=== PATIENT | female | born 1995 ===

== ENCOUNTER 2018-12-23 14:56 | Inpatient (IN) | payer SELFPAY ==
[2018-12-23] MEDS ORDERED: Sodium Chloride 0.9% 2.5 ML Syringe FLUSH PRN (18:29)
[2018-12-23] MEDS ORDERED: Carboprost Tromethamine 250 MCG/1 ML Amp IM PRN (18:29)
[2018-12-23] MEDS ORDERED: Ondansetron 4 MG/2 ML SDV IV PRN (18:29)
[2018-12-23] MEDS ORDERED: Butorphanol 1 MG/ML SDV IVPUSH PRN (18:29)
[2018-12-23] MEDS ORDERED: Lidocaine 1% 50 ML MDV INJECT PRN (18:29)
[2018-12-23] MEDS ORDERED: Nalbuphine 10 MG/1 ML Vial IVPUSH PRN (18:29)
[2018-12-23] MEDS ORDERED: Tranexamic Acid 1,000 MG in Sodium Chloride 0.9% 100 ML IV PRN (18:29)
[2018-12-23] MEDS ORDERED: Water For Irrigation,Sterile 1,000 ML Container IRR PRN (18:29)
[2018-12-23] MEDS ORDERED: Sodium Chloride 0.9% 10 ML Syringe FLUSH PRN (18:29)
[2018-12-23] MEDS ORDERED: Misoprostol 200 MCG Tab PO PRN (18:29)
[2018-12-23] MEDS ORDERED: Sodium Chloride 0.9% 10 ML SDV IV PRN (18:29)
[2018-12-23] MEDS ORDERED: Methylergonovine 0.2 MG/1 ML Amp IM PRN (18:29)
[2018-12-23] MEDS ORDERED: Oxytocin/0.9 % Sodium Chloride 30 UNIT/500 ML BAG IV SCH (18:30)
[2018-12-23] MEDS ORDERED: Lactated Ringers 1,000 ML IV SCH (18:30)
--- NOTE | 2018-12-23 18:35 | PCM.LDHP ---
L&D History of Present Illness - General Date of Service: 12/23/18 Admit Problem/Dx: Patient Status Order with Admit Dx/Problem 12/23/18 15:37 Patient Status [ADT] Routine 12/23/18 18:29 Patient Status [ADT] Routine Admission Diagnosis/Problem Admission Diagnosis/Problem Source of Information: Patient History Limitations: Reports: No Limitations - History of Present Illness Improves with: Reports: None Worsens with: Reports: None Associated Symptoms: Reports: N - Related Data Allergies/Adverse Reactions: Allergies Allergy/AdvReac Type Severity Reaction Status Date / Time No Known Allergies Allergy Verified 12/23/18 15:36 Home Medications: Home Meds Pnv22/Iron Cbn&Gluc/Fa/Dss/Dha [PNV OB + DHA] 1 tab PO DAILY 12/23/18 [History] H&P Review of Systems - Review of Systems: Review Of Systems: See Below General: Reports: No Symptoms HEENT: Reports: No Symptoms Pulmonary: Reports: No Symptoms Cardiovascular: Reports: No Symptoms Gastrointestinal: Reports: No Symptoms Genitourinary: Reports: No Symptoms Musculoskeletal: Reports: No Symptoms Skin: Reports: No Symptoms Psychiatric: Reports: No Symptoms Neurological: Reports: No Symptoms Hematologic/Lymphatic: Reports: No Symptoms Immunologic: Reports: No Symptoms L&D Exam - Exam Exam: See Below - Vital Signs Weight: 97.976 kg - OB Specific Fundal Height In cm: 36 Contraction Intensity: Moderate Movement: Active Heart Tones: Present Presentation: Vertex - Garcia Score Garcia Score Cervix Position: Anterior Garcia Score Consistency: Soft Garcia Score Effacement: 51-70% Garcia Score Dilation: 3-4 cm Garcia Score Infant's Station: -2 Garcia Score Total: 9 - Exam General: Alert, Oriented HEENT: PERRLA, Conjunctiva Clear, EACs Clear, EOMI, Hearing Intact, Mucosa Moist & [place], Nares Patent, Normal Nasal Septum, Posterior Pharynx Clear, TMs Clear Neck: Supple, Trachea Midline Lungs: Clear to Auscultation, Normal Respiratory Effort Cardiovascular: Regular Rate, Regular Rhythm GI/Abdominal Exam: Normal Bowel Sounds, Soft, Non-Tender, No Organomegaly, No Distention, No Abnormal Bruit, No Mass, Pelvis Stable Rectal Exam: Normal Exam, Normal Rectal Tone Genitourinary: Normal external exam, Normal bimanual exam, Normal speculum exam Back Exam: Normal Inspection, Full Range of Motion Extremities: Normal Inspection, Normal Range of Motion, Non-Tender, No Pedal Edema, Normal Capillary Refill Skin: Warm, Dry, Intact Neurological: Cranial Nerves Intact, Reflexes Equal Bilateral Psychiatric: Alert, Normal Affect, Normal Mood - Patient Data Lab Results Last 24 hrs: Laboratory Results - last 24 hr 12/23/18 12/23/18 Range/Units 13:15 15:21 Urine Color YELLOW Urine Appearance CLEAR Urine pH 7.0 (5.0-8.0) Ur Specific [place] <= 1.005 (1.001-1.035) Urine Protein NEGATIVE (NEGATIVE) mg/dL Urine Glucose (UA) NEGATIVE (NEGATIVE) mg/dL Urine Ketones NEGATIVE (NEGATIVE) mg/dL Urine Occult Blood NEGATIVE (NEGATIVE) Urine Nitrite NEGATIVE (NEGATIVE) Urine Bilirubin NEGATIVE (NEGATIVE) Urine Urobilinogen 0.2 (<2.0) EU/dL Ur Leukocyte Esterase NEGATIVE (NEGATIVE) Membrane Rupture NEGATIVE Problem List Initiated/Reviewed/Updated: Yes Orders Last 24hrs: Active Orders 24 hr Category Date Time Status Patient Status [ADT] Routine ADT 12/23/18 15:37 Active Patient Status [ADT] Routine ADT 12/23/18 18:29 Active Heart Tones [RC] CONTINUOUS Care 12/23/18 18:29 Active Non Stress Test [RC] PER UNIT ROUTINE Care 12/23/18 15:37 Active Non Stress Test [RC] PER UNIT ROUTINE Care 12/23/18 18:29 Active May Shower [RC] ASDIRECTED Care 12/23/18 18:29 Active Notify Provider [RC] PRN Care 12/23/18 18:29 Active Up ad Violette [RC] ASDIRECTED Care 12/23/18 15:37 Active Up ad Violette [RC] ASDIRECTED Care 12/23/18 18:29 Active Vaginal Exam [RC] Click to Edit Care 12/23/18 15:37 Active Vaginal Exam [RC] PRN Care 12/23/18 18:29 Active Vital Signs [RC] PER UNIT ROUTINE Care 12/23/18 15:37 Active Vital Signs [RC] PER UNIT ROUTINE Care 12/23/18 18:29 Active CBC W/O DIFF,HEMOGRAM [HEME] Routine Lab 12/23/18 18:29 Ordered TYPE AND SCREEN [BBK] Routine Lab 12/23/18 18:29 Ordered Ampicillin 1 gm Med 12/23/18 23:00 Ordered Sodium Chloride 0.9% [Normal Saline] 50 ml IV Q4H Ampicillin 2 gm Med 12/23/18 19:00 Ordered Sodium Chloride 0.9% [Normal Saline] 100 ml IV ONETIME Butorphanol [Stadol] Med 12/23/18 18:29 Ordered 1 mg IVPUSH Q1H PRN Carboprost Tromethamine [Hemabate DS] Med 12/23/18 18:29 Ordered 250 mcg IM ASDIRECTED PRN Lactated Ringers @ 150 MLS/HR(1000ml) Med 12/23/18 18:30 Ordered Lactated Ringers [Ringers, Lactated] 1,000 ml IV ASDIRECTED Lidocaine 1% [Xylocaine 1%] Med 12/23/18 18:29 Ordered 50 ml INJECT ONETIME PRN Methylergonovine [Methergine] Med 12/23/18 18:29 Ordered 0.2 mg IM ASDIRECTED PRN Nalbuphine [Nubain] Med 12/23/18 18:29 Ordered 10 mg IVPUSH Q1H PRN Ondansetron [Zofran] Med 12/23/18 18:29 Ordered 4 mg IV Q4H PRN Oxytocin/0.9 % Sodium Chloride [Oxytocin 30 Unit/500 ML Med 12/23/18 18:30 Ordered -NS] 30 unit in 500 ml IV TITRATE Sodium Chloride 0.9% [Normal Saline] Med 12/23/18 18:29 Ordered 10 ml IV ASDIRECTED PRN Sodium Chloride 0.9% [Saline Flush] Med 12/23/18 18:29 Ordered 10 ml FLUSH ASDIRECTED PRN Sodium Chloride 0.9% [Saline Flush] Med 12/23/18 18:29 Ordered 2.5 ml FLUSH ASDIRECTED PRN Tranexamic Acid [Cyklokapron] 1,000 mg Med 12/23/18 18:29 Ordered Sodium Chloride 0.9% [Normal Saline] 100 ml IV ONETIME Water For Irrigation,Sterile [Sterile Water for Med 12/23/18 18:29 Ordered Irrigation] 1,000 ml IRR ASDIRECTED PRN miSOPROStol [Cytotec] Med 12/23/18 18:29 Ordered 200 mcg PO ONETIME PRN Scalp Electrode [WOMSER] Per Unit Routine Oth 12/23/18 18:29 Ordered Peripheral IV Insertion Adult [OM.PC] Routine Oth 12/23/18 18:29 Ordered Resuscitation Status Routine Resus Stat 12/23/18 18:29 Ordered Assessment/Plan Comment:: 36 + wks in early active labor. GBS is pendding so we will start her on antibiotics as per protocol. Expectant management.
[2018-12-23] MEDS ORDERED: Ampicillin 2 GM in Sodium Chloride 0.9% 100 ML IV ONE (19:00)
[2018-12-23] MEDS: Ampicillin 1 GM in Sodium Chloride 0.9% 50 ML IV SCH (23:06)
[2018-12-24] MEDS: Ampicillin 1 GM in Sodium Chloride 0.9% 50 ML IV SCH ×2 (04:16→07:45)
[2018-12-24] MEDS ORDERED: Docusate Sodium 100 MG Cap PO PRN (11:33)
[2018-12-24] MEDS ORDERED: Benzocaine/Menthol 20%-0.5% Spray 78 GM Cannister TOP PRN (11:33)
[2018-12-24] MEDS ORDERED: Bisacodyl 10 MG Supp RECTAL PRN (11:33)
[2018-12-24] MEDS ORDERED: Lanolin 100% Cream 7 GM Tube TOP PRN (11:33)
[2018-12-24] MEDS ORDERED: Ibuprofen 400 MG Tab PO PRN (11:33)
[2018-12-24] MEDS ORDERED: Acetaminophen 500 MG Tab PO PRN ×2 (11:33)
[2018-12-24] MEDS ORDERED: oxyCODONE 5 MG Tab PO PRN (11:33)
[2018-12-24] MEDS ORDERED: Witch Hazel Medicated Pads 40/Jar TOP PRN (11:33)
[2018-12-24] MEDS ORDERED: Ibuprofen 800 MG Tab PO PRN (11:33)
--- NOTE | 2018-12-24 17:57 | OR ---
SURGEON: Dmitri Mansfield MD DATE OF PROCEDURE: Ms. Lloyd is 23 years old. She is para 1-0-0-1. She is followed in our clinic. She is primarily followed by me. She is 36 +4 . She presented last night to Labor and Delivery with contraction, she slowly developed contraction, and she progressed from 1 to 5 cm rather in a couple of hours. Then, her labor slowed down and then restarted again, and then she continued to progress. She did not have epidural. She became complete-complete, and she was able to accomplish normal spontaneous vaginal delivery of a male fetus, cried immediately, and required some oxygen resuscitation. The placenta delivered spontaneous, complete, and intact. There was no episiotomy. No laceration in labial or perineal. Estimated blood loss was 250 to 300 mL. heart rate was category 1 through the entire process of labor. The patient's GBS status was pending. She was started on appropriate antibiotic, and she received 4 doses prior to the delivery. There was no complication in the labor process or in the delivery. [place] / ALBAN /[id number]
--- NOTE | 2018-12-25 10:14 | PCM.PNPP ---
- General Info Date of Service: 12/25/18 Functional Status: Reports: Pain Controlled - Review of Systems General: Reports: No Symptoms HEENT: Reports: No Symptoms Pulmonary: Reports: No Symptoms Cardiovascular: Reports: No Symptoms Gastrointestinal: Reports: No Symptoms Genitourinary: Reports: No Symptoms Musculoskeletal: Reports: No Symptoms Skin: Reports: No Symptoms Neurological: Reports: No Symptoms Psychiatric: Reports: No Symptoms - General Info Date of Service: 12/25/18 - Patient Data Vital Signs - Most Recent: Last Vital Signs Temp 36.3 C 12/25/18 07:05 Pulse 72 12/25/18 07:05 Resp 16 12/25/18 07:05 BP 101/51 L 12/25/18 07:05 Pulse Ox 96 12/25/18 07:05 Weight - Most Recent: 98.43 kg Lab Results - Last 24 Hours: Laboratory Results - last 24 hr 12/25/18 Range/Units 04:58 Hgb 11.8 L (12.0-16.0) g/dL Hct 36.3 (36.0-46.0) % Med Orders - Current: Current Medications Acetaminophen (Tylenol Extra Strength) 500 mg PO Q4H PRN PRN Reason: Pain Acetaminophen (Tylenol Extra Strength) 1,000 mg PO Q4H PRN PRN Reason: Pain Benzocaine/Menthol (Dermoplast Pain Relief 20%-0.5% Gabriels) 78 gm TOP ASDIRECTED PRN PRN Reason: Perineal Comfort Measure Bisacodyl (Dulcolax) 10 mg RECTAL ONETIME PRN PRN Reason: Constipation Butorphanol Tartrate (Stadol) 1 mg IVPUSH Q1H PRN PRN Reason: Pain Carboprost Tromethamine (Hemabate Ds) 250 mcg IM ASDIRECTED PRN PRN Reason: Post Hemorrhage Docusate Sodium (Colace) 100 mg PO BID PRN PRN Reason: Constipation Emollient Ointment (Lansinoh Hpa) 0 gm TOP ASDIRECTED PRN PRN Reason: Sore Nipples Tranexamic Acid 1,000 mg/ (Sodium Chloride) 110 mls @ 660 mls/hr IV ONETIME PRN PRN Reason: Bleeding Lactated Ringer's (Ringers, Lactated) 1,000 mls @ 150 mls/hr IV ASDIRECTED MARIIA Last Admin: 12/23/18 19:00 Dose: 150 mls/hr Oxytocin/Sodium Chloride (Oxytocin 30 Unit/500 Ml-Ns) 30 unit in 500 mls @ 500 mls/hr IV TITRATE MARIIA Ampicillin Sodium 1 gm/ Sodium (Chloride) 50 mls @ 100 mls/hr IV Q4H MARIIA Last Admin: 12/24/18 07:45 Dose: 100 mls/hr Ibuprofen (Motrin) 400 mg PO Q4H PRN PRN Reason: Pain Ibuprofen (Motrin) 800 mg PO Q6H PRN PRN Reason: Pain Last Admin: 12/24/18 18:55 Dose: 800 mg Lidocaine HCl (Xylocaine 1%) 50 ml INJECT ONETIME PRN PRN Reason: Laceration repair Methylergonovine Maleate (Methergine) 0.2 mg IM ASDIRECTED PRN PRN Reason: Post Hemorrhage Misoprostol (Cytotec) 200 mcg PO ONETIME PRN PRN Reason: Post Hemorrhage Nalbuphine HCl (Nubain) 10 mg IVPUSH Q1H PRN PRN Reason: Pain (severe 7-10) Ondansetron HCl (Zofran) 4 mg IV Q4H PRN PRN Reason: Nausea/Vomiting Oxycodone HCl (Oxycodone) 5 mg PO Q2H PRN PRN Reason: Pain Sodium Chloride (Saline Flush) 10 ml FLUSH ASDIRECTED PRN PRN Reason: Keep Vein Open Sodium Chloride (Saline Flush) 2.5 ml FLUSH ASDIRECTED PRN PRN Reason: Keep Vein Open Sodium Chloride (Normal Saline) 10 ml IV ASDIRECTED PRN PRN Reason: IV Use Sterile Water (Sterile Water For Irrigation) 1,000 ml IRR ASDIRECTED PRN PRN Reason: delivery Witch Tanesha (Tucks) 1 pad TOP ASDIRECTED PRN PRN Reason: comfort care Discontinued Medications Ampicillin Sodium 2 gm/ Sodium (Chloride) 100 mls @ 200 mls/hr IV ONETIME ONE Stop: 12/23/18 19:29 Last Admin: 12/23/18 19:00 Dose: 200 mls/hr - Infant Interaction Disposition, : in Room with Family Infant Interaction: Holding Infant Support Person: - Recovery Exam Fundal Tone: Firm Fundal Level: 2 Fingerbreadths Below Umbilicus Fundal Placement: Midline Lochia Amount: Scant Lochia Color: Rubra/Red Perineum Description: Intact, Minimal Bruising/Swelling Episiotomy/Laceration: None Bladder Status: Voiding Urinary Elimination: Voided - Exam General: Alert, Oriented HEENT: Pupils Equal Neck: Supple Lungs: Clear to Auscultation, Normal Respiratory Effort Cardiovascular: Regular Rate, Regular Rhythm GI/Abdominal Exam: Normal Bowel Sounds, Soft, Non-Tender, No Organomegaly, No Distention, No Abnormal Bruit, No Mass, Pelvis Stable Extremities: Normal Inspection, Normal Range of Motion, Non-Tender, No Pedal Edema, Normal Capillary Refill Skin: Warm, Dry, Intact Wound/Incisions: Healing Well Neurological: No New Focal Deficit Psy/Mental Status: Alert, Normal Affect, Normal Mood - Problem List Review Problem List Initiated/Reviewed/Updated: Yes - My Orders Last 24 Hours: My Active Orders 12/24/18 11:33 Patient Status [ADT] Routine May Shower [RC] ASDIRECTED Up ad Violette [RC] ASDIRECTED Vital Signs [RC] PER UNIT ROUTINE Acetaminophen [Tylenol Extra Strength] 1,000 mg PO Q4H PRN Acetaminophen [Tylenol Extra Strength] 500 mg PO Q4H PRN Benzocaine/Menthol [Dermoplast Pain Relief 20%-0.5% Gabriels] 78 gm TOP ASDIRECTED PRN Bisacodyl [Dulcolax] 10 mg RECTAL ONETIME PRN Docusate Sodium [Colace] 100 mg PO BID PRN Ibuprofen [Motrin] 400 mg PO Q4H PRN Ibuprofen [Motrin] 800 mg PO Q6H PRN Lanolin [Lansinoh HPA] See Dose Instructions TOP ASDIRECTED PRN Witch Tanesha [Tucks] 1 pad TOP ASDIRECTED PRN oxyCODONE 5 mg PO Q2H PRN Assess Lochia [WOMSER] Per Unit Routine Assess Uterine Involution [WOMSER] Per Unit Routine Peripheral IV Discontinue [OM.PC] Routine - Plan Plan:: 36 + wks in early active labor. GBS is pendding so we will start her on antibiotics as per protocol. Expectant management.
--- NOTE | 2018-12-25 10:18 | PCM.DCSUM1 ---
Discharge Summary - Hospital Course Diagnosis: Stroke: No - Discharge Data Discharge Date: 12/25/18 Discharge Disposition: Home, Self-Care 01 Condition: Good - Patient Instructions Diet: Usual Diet as Tolerated Activity: As Tolerated Showering/Bathing: No Showering - Discharge Plan Home Medications: Home Meds Pnv22/Iron Cbn&Gluc/Fa/Dss/Dha [PNV OB + DHA] 1 tab PO DAILY 12/23/18 [History] Referrals: [facility] [Outside] Dmitri Mansfield MD [Physician] - 02/04/19 10:45 am - Discharge Summary/Plan Comment DC Time >30 min.: Yes - General Info Date of Service: 12/25/18 Functional Status: Reports: Pain Controlled - Review of Systems General: Reports: No Symptoms HEENT: Reports: No Symptoms Pulmonary: Reports: No Symptoms Cardiovascular: Reports: No Symptoms Gastrointestinal: Reports: No Symptoms Genitourinary: Reports: No Symptoms Musculoskeletal: Reports: No Symptoms Skin: Reports: No Symptoms Neurological: Reports: No Symptoms Psychiatric: Reports: No Symptoms - Patient Data Vitals - Most Recent: Last Vital Signs Temp 36.3 C 12/25/18 07:05 Pulse 72 12/25/18 07:05 Resp 16 12/25/18 07:05 BP 101/51 L 12/25/18 07:05 Pulse Ox 96 12/25/18 07:05 Weight - Most Recent: 98.43 kg Lab Results - Last 24 hrs: Laboratory Results - last 24 hr 12/25/18 Range/Units 04:58 Hgb 11.8 L (12.0-16.0) g/dL Hct 36.3 (36.0-46.0) % Med Orders - Current: Current Medications Acetaminophen (Tylenol Extra Strength) 500 mg PO Q4H PRN PRN Reason: Pain Acetaminophen (Tylenol Extra Strength) 1,000 mg PO Q4H PRN PRN Reason: Pain Benzocaine/Menthol (Dermoplast Pain Relief 20%-0.5% [place]) 78 gm TOP ASDIRECTED PRN PRN Reason: Perineal Comfort Measure Bisacodyl (Dulcolax) 10 mg RECTAL ONETIME PRN PRN Reason: Constipation Butorphanol Tartrate (Stadol) 1 mg IVPUSH Q1H PRN PRN Reason: Pain Carboprost Tromethamine (Hemabate Ds) 250 mcg IM ASDIRECTED PRN PRN Reason: Post Hemorrhage Docusate Sodium (Colace) 100 mg PO BID PRN PRN Reason: Constipation Emollient Ointment (Lansinoh Hpa) 0 gm TOP ASDIRECTED PRN PRN Reason: Sore Nipples Tranexamic Acid 1,000 mg/ (Sodium Chloride) 110 mls @ 660 mls/hr IV ONETIME PRN PRN Reason: Bleeding Lactated Ringer's (Ringers, Lactated) 1,000 mls @ 150 mls/hr IV ASDIRECTED MARIIA Last Admin: 12/23/18 19:00 Dose: 150 mls/hr Oxytocin/Sodium Chloride (Oxytocin 30 Unit/500 Ml-Ns) 30 unit in 500 mls @ 500 mls/hr IV TITRATE [facility] Ampicillin Sodium 1 gm/ Sodium (Chloride) 50 mls @ 100 mls/hr IV Q4H [facility] Last Admin: 12/24/18 07:45 Dose: 100 mls/hr Ibuprofen (Motrin) 400 mg PO Q4H PRN PRN Reason: Pain Ibuprofen (Motrin) 800 mg PO Q6H PRN PRN Reason: Pain Last Admin: 12/24/18 18:55 Dose: 800 mg Lidocaine HCl (Xylocaine 1%) 50 ml INJECT ONETIME PRN PRN Reason: Laceration repair Methylergonovine Maleate (Methergine) 0.2 mg IM ASDIRECTED PRN PRN Reason: Post Hemorrhage Misoprostol (Cytotec) 200 mcg PO ONETIME PRN PRN Reason: Post Hemorrhage Nalbuphine HCl (Nubain) 10 mg IVPUSH Q1H PRN PRN Reason: Pain (severe 7-10) Ondansetron HCl (Zofran) 4 mg IV Q4H PRN PRN Reason: Nausea/Vomiting Oxycodone HCl (Oxycodone) 5 mg PO Q2H PRN PRN Reason: Pain Sodium Chloride (Saline Flush) 10 ml FLUSH ASDIRECTED PRN PRN Reason: Keep Vein Open Sodium Chloride (Saline Flush) 2.5 ml FLUSH ASDIRECTED PRN PRN Reason: Keep Vein Open Sodium Chloride (Normal Saline) 10 ml IV ASDIRECTED PRN PRN Reason: IV Use Sterile Water (Sterile Water For Irrigation) 1,000 ml IRR ASDIRECTED PRN PRN Reason: delivery Neisha Almendarez (Tucks) 1 pad TOP ASDIRECTED PRN PRN Reason: comfort care Discontinued Medications Ampicillin Sodium 2 gm/ Sodium (Chloride) 100 mls @ 200 mls/hr IV ONETIME ONE Stop: 12/23/18 19:29 Last Admin: 12/23/18 19:00 Dose: 200 mls/hr - Exam General: Reports: Alert, Oriented HEENT: Reports: Pupils Equal, Pupils Reactive, EOMI, Mucous Membr. Moist/[place] Neck: Reports: Supple Lungs: Reports: Clear to Auscultation, Normal Respiratory Effort Cardiovascular: Reports: Regular Rate, Regular Rhythm GI/Abdominal Exam: Normal Bowel Sounds, Soft, Non-Tender, No Organomegaly, No Distention, No Abnormal Bruit, No Mass, Pelvis Stable (Female) Exam: Normal External Exam, Normal Speculum Exam, Normal Bimanual Exam Rectal (Female) Exam: Normal Exam, Normal Rectal Tone Back Exam: Reports: Normal Inspection, Full Range of Motion Extremities: Normal Inspection, Normal Range of Motion, Non-Tender, No Pedal Edema, Normal Capillary Refill Skin: Reports: Warm, Dry, Intact Wound/Incisions: Reports: Healing Well Neurological: Reports: No New Focal Deficit Psy/Mental Status: Reports: Alert, Normal Affect, Normal Mood
[2018-12-25] MEDS ORDERED: hydrOXYzine Pamoate 25 MG Cap PO ONE (16:25)
== END 2018-12-25 15:45 | disposition home or self-care (01) | DRG 807 ==
LOC: MW.OBCHECK 14:56 → MW.OB 14:57 → MW.OBCHECK 18:29 → MW.OB 18:29 → OBSVTOIN 12-24 11:02 → MW.OB 12-24 19:30
PROVIDERS: ADMIT Obstetrics & Gynecology; ATTEND Obstetrics & Gynecology
PROC: 10E0XZZ Delivery of Products of Conception, External Approach (ICD-10-PCS; principal; 2018-12-25)
DX: O60.14X0 Preterm labor third trimester with preterm delivery third trimester, not applicable or unspecified (principal); Z37.0 Single live birth; Z3A.36 36 weeks gestation of pregnancy
CPT/HCPCS: 36415; 59025; 59409; 81003; 84112; 85014; 85018; 85027; 86850; 86900; 86901; A9270-GY; J0290; J7030; J7050; J7120

== ENCOUNTER 2021-01-26 21:31 | Inpatient (IN) | payer BC ==
[2021-01-26] MEDS ORDERED: Nalbuphine 10 MG/1 ML Vial IVPUSH PRN (22:15)
[2021-01-26] MEDS ORDERED: Sodium Chloride 0.9% 2.5 ML Syringe FLUSH PRN (22:15)
[2021-01-26] MEDS ORDERED: Sodium Chloride 0.9% 10 ML SDV IV PRN (22:15)
[2021-01-26] MEDS ORDERED: Misoprostol 200 MCG Tab PO PRN (22:15)
[2021-01-26] MEDS ORDERED: Tranexamic Acid 1,000 MG in Sodium Chloride 0.9% 100 ML IV PRN (22:15)
[2021-01-26] MEDS ORDERED: Oxytocin/0.9 % Sodium Chloride 30 UNIT/500 ML BAG IV SCH (22:15)
[2021-01-26] MEDS ORDERED: Carboprost Tromethamine 250 MCG/1 ML Amp IM PRN (22:15)
[2021-01-26] MEDS ORDERED: Butorphanol 1 MG/ML SDV IVPUSH PRN (22:15)
[2021-01-26] MEDS ORDERED: Lactated Ringers 1,000 ML IV SCH (22:15)
[2021-01-26] MEDS ORDERED: Lidocaine 1% 50 ML MDV INJECT PRN (22:15)
[2021-01-26] MEDS ORDERED: Water For Irrigation,Sterile 1,000 ML Container IRR PRN (22:15)
[2021-01-26] MEDS ORDERED: Sodium Chloride 0.9% 10 ML Syringe FLUSH PRN (22:15)
[2021-01-26] MEDS ORDERED: Methylergonovine 0.2 MG/1 ML Amp IM PRN (22:15)
--- NOTE | 2021-01-26 22:19 | PCM.LDHP ---
L&D History of Present Illness - General Date of Service: 01/26/21 Admit Problem/Dx: Patient Status Order with Admit Dx/Problem 01/26/21 22:15 Patient Status [ADT] Routine Admission Diagnosis/Problem Admission Diagnosis/Problem Uterine contractions 01/26/21 22:24 Shani is a 25 yo at 39+3 weeks (TRISTEN(US) 01/30/2021) that presents today for strong persistent painful uterine contractions that started ~3 hours ago. Reports FM. Denies vaginal bleeding, LOF, or any other problems at this time. O pos, RI, GBS neg NKDA. Pertinent medical hx: obesity, SAB. Patient denies any other complaints or concerns at this time. SVE 4-5/80/-2, soft, anterior. 01/26/21 22:27 01/26/21 22:39 Source of Information: Patient History Limitations: Reports: No Limitations - History of Present Illness Severity: Moderate Improves with: Reports: Rest Worsens with: Reports: Movement Associated Symptoms: Reports: N - Related Data Allergies/Adverse Reactions: Allergies Allergy/AdvReac Type Severity Reaction Status Date / Time No Known Allergies Allergy Verified 12/23/18 15:36 Home Medications: Home Meds Pnv22/Iron Cbn&Gluc/Fa/Dss/Dha [PNV OB + DHA] 1 tab PO DAILY 12/23/18 [History] Past Medical History - Past Health History Medical/Surgical History: Denies Medical/Surgical History HEENT History: Reports: None Cardiovascular History: Reports: None Respiratory History: Reports: None Gastrointestinal History: Reports: None Genitourinary History: Reports: None [employer] History: Reports: , Spontaneous : 7 Para: 2 LMP (Approximate): Musculoskeletal History: Reports: None Neurological History: Reports: None Psychiatric History: Reports: None Endocrine/Metabolic History: Reports: Obesity/BMI 30+ Hematologic History: Reports: None Social & Family History - Family History Endocrine/Metabolic: Reports: Hypothyroidism - Tobacco Use Tobacco Use Status *Q: Never Tobacco User - Caffeine Use Caffeine Use: Reports: Coffee - Alcohol Use Alcohol Use History: No - Recreational Drug Use Recreational Drug Use: No H&P Review of Systems - Review of Systems: Review Of Systems: Comprehensive ROS is negative, except as noted in HPI. General: Reports: No Symptoms HEENT: Reports: No Symptoms Pulmonary: Reports: No Symptoms Cardiovascular: Reports: No Symptoms Gastrointestinal: Reports: No Symptoms Genitourinary: Reports: No Symptoms Musculoskeletal: Reports: No Symptoms Skin: Reports: No Symptoms Psychiatric: Reports: No Symptoms Neurological: Reports: No Symptoms Hematologic/Lymphatic: Reports: No Symptoms Immunologic: Reports: No Symptoms L&D Exam - Exam Exam: See Below - Vital Signs Vital Signs: VSS afebrile. See flowsheet Weight: 228 lb - OB Specific Fundal Height In cm: 40 Contraction Duration (sec): 50-70 Contraction Frequency (min): 3-6 Contraction Intensity: Moderate Movement: Active Heart Tones: Present Heart Tones per Min: 130 Heart Rate (FHR) Variability: Moderate (6-25 bmp) Presentation: Vertex (via SVE and handheld TAUS) - Garcia Score Garcia Score Cervix Position: Anterior Garcia Score Consistency: Soft Garcia Score Effacement: >80% Garcia Score Dilation: 3-4 cm Garcia Score 's Station: -2 Garcia Score Total: 10 - Exam General: Alert, Oriented, Cooperative HEENT: Conjunctiva Clear, Hearing Intact, Mucosa Moist & [place], Nares Patent, PERRLA Neck: Supple, Trachea Midline Lungs: Clear to Auscultation, Normal Respiratory Effort Cardiovascular: Regular Rate, Regular Rhythm GI/Abdominal Exam: Normal Bowel Sounds, Soft, Non-Tender, No Organomegaly, No Distention Rectal Exam: Deferred Genitourinary: Normal external exam, Normal bimanual exam, Enlarged uterus (Gravid uterus) Back Exam: Normal Inspection, Full Range of Motion Extremities: Normal Inspection, Normal Range of Motion, Non-Tender, No Pedal Edema, Normal Capillary Refill Skin: Warm, Dry, Intact Neurological: Cranial Nerves Intact, Reflexes Equal Bilateral Psychiatric: Alert, Normal Affect, Normal Mood - Problem List (1) Uterine contractions SNOMED Code(s): 036870023 ICD Code: [id number] - Status: Acute Priority: High Current Visit: Yes (2) 39 weeks gestation of SNOMED Code(s): 12028526 ICD Code: Z3A.39 - 39 WEEKS GESTATION OF Status: Acute Priority: High Current Visit: Yes Problem List Initiated/Reviewed/Updated: Yes Orders Last 24hrs: Active Orders 24 hr Category Date Time Status Patient Status [ADT] Routine ADT 01/26/21 22:15 Ordered Heart Tones [RC] CONTINUOUS Care 01/26/21 22:15 Ordered Non Stress Test [RC] PER UNIT ROUTINE Care 01/26/21 22:15 Ordered May Shower [RC] ASDIRECTED Care 01/26/21 22:15 Ordered Notify Provider [RC] PRN Care 01/26/21 22:15 Ordered Up ad Violette [RC] ASDIRECTED Care 01/26/21 22:15 Ordered Vaginal Exam [RC] PRN Care 01/26/21 22:15 Ordered Vital Signs [RC] PER UNIT ROUTINE Care 01/26/21 22:15 Ordered Regular Diet [DIET] Diet 01/26/21 Dinner Ordered CBC W/O DIFF,HEMOGRAM [HEME] Routine Lab 01/26/21 22:15 Ordered RPR (SYPHILIS SERO) W/ RFLX [REF] Routine Lab 01/26/21 22:15 Ordered TYPE AND SCREEN [BBK] Routine Lab 01/26/21 22:15 Ordered Butorphanol [Stadol] Med 01/26/21 22:15 Ordered 1 mg IVPUSH Q1H PRN Carboprost Tromethamine [Hemabate DS] Med 01/26/21 22:15 Ordered 250 mcg IM ASDIRECTED PRN Lactated Ringers @ 150 MLS/HR(1000ml) Med 01/26/21 22:15 Ordered Lactated Ringers [Ringers, Lactated] 1,000 ml IV ASDIRECTED Lidocaine 1% [Xylocaine 1%] Med 01/26/21 22:15 Ordered 50 ml INJECT ONETIME PRN Methylergonovine [Methergine] Med 01/26/21 22:15 Ordered 0.2 mg IM ASDIRECTED PRN Nalbuphine [Nubain] Med 01/26/21 22:15 Ordered 10 mg IVPUSH Q1H PRN Oxytocin/0.9 % Sodium Chloride [Oxytocin 30 Unit/500 ML Med 01/26/21 22:15 Ordered -NS] 30 unit in 500 ml IV TITRATE Sodium Chloride 0.9% [Normal Saline] Med 01/26/21 22:15 Ordered 10 ml IV ASDIRECTED PRN Sodium Chloride 0.9% [Saline Flush] Med 01/26/21 22:15 Ordered 10 ml FLUSH ASDIRECTED PRN Sodium Chloride 0.9% [Saline Flush] Med 01/26/21 22:15 Ordered 2.5 ml FLUSH ASDIRECTED PRN Tranexamic Acid [Cyklokapron] 1,000 mg Med 01/26/21 22:15 Ordered Sodium Chloride 0.9% [Normal Saline] 100 ml IV ONETIME Water For Irrigation,Sterile [Sterile Water for Med 01/26/21 22:15 Ordered Irrigation] 1,000 ml IRR ASDIRECTED PRN miSOPROStoL [Cytotec] Med 01/26/21 22:15 Ordered 200 mcg PO ONETIME PRN Scalp Electrode [WOMSER] Per Unit Routine Oth 01/26/21 22:15 Ordered Peripheral IV Insertion Adult [OM.PC] Routine Oth 01/26/21 22:15 Ordered Resuscitation Status Routine Resus Stat 01/26/21 22:15 Ordered Assessment/Plan Comment:: Admit to inpatient observation to labor and delivery for uterine contractions in anticipation of of term viable . Regular diet. May receive epidural analgesia as desired pending labs. May intermittently monitor per orders once reactive NST is achieved. See new orders. Dr. Nunez notified and agreeable with POC.
--- NOTE | 2021-01-27 03:11 | PCM.DEL ---
L & D Note - General Info Date of Service: 01/27/21 Mother's Due Date: 01/30/21 - Delivery Note Labor: Spontaneous, Augmented by ARM Delivery Outcome: Livebirth Delivery Method: Spontaneous Vaginal Delivery-Single Delivery Mode: Spontaneous Presentation: Left Occiput Anterior (JUSTIN) (via SVE and handheld TAUS) Nuchal Cord: None Anesthesia Type: Epidural Amniotic Fluid Description: Clear Episiotomy Type: None Laceration: None Placenta: Intact, Spontaneous Cord: 3 Vessels Estimated Blood Loss: 200 : Stimulated, Warmed, [place] Used Score 1 min: 9 Score 5 min: 9 Second Stage Interventions: Reports: Encouragement Given, Pushing Effectively, Pushing, Feet in Foot Rests Delivery Comments (Free Text/Narrative):: Shani is a 25 yo current s/p uncomplicated at 39+4 weeks (TRISTEN() ) following presentation to L&D for strong persistent painful uterine contractions that started at ~10 pm. O pos, RI, GBS neg. Pain well controlled with comfort measures and coping techniques. head delivered JUSTIN, with body following easily behind. NBM placed to maternal abdomen, warmed, dried, stimulated with spontaneous vigorous cries. Umbilical cord left intact x 3 min until cord pulsation cessation. Umbilical cord clamped x 2, cut by FOB. Pitocin IV bolus commenced for active third stage management. Placenta delivered intact, Radha, 3VC; incidental umbilical cord cysts noted along entirety of cord. Perineum intact. APGARS 9/9. weight pending. EBL 200. Induction Criteria - Augmentation Estimated Pelvis: Reports: Adequate Weight Estimated:: Reports: AGA Reassuring Monitoring Strip: Yes - General Info Date of Service: 01/27/21 Admission Dx/Problem (Free Text): Patient Status Order with Admit Dx/Problem 01/26/21 22:15 Patient Status [ADT] Routine Admission Diagnosis/Problem Admission Diagnosis/Problem Uterine contractions 01/26/21 22:24 Shani is a 25 yo at 39+3 weeks (TRISTEN() 01/30/2021) that presents today for strong persistent painful uterine contractions that started ~3 hours ago. Reports FM. Denies vaginal bleeding, LOF, or any other problems at this time. O pos, RI, GBS neg NKDA. Pertinent medical hx: obesity, SAB. Patient denies any other complaints or concerns at this time. SVE 4-5/80/-2, soft, anterior. 01/26/21 22:27 01/26/21 22:39 Functional Status: Reports: Pain Controlled, Tolerating Diet, Ambulating, Urinating - Review of Systems General: Reports: No Symptoms HEENT: Reports: No Symptoms Pulmonary: Reports: No Symptoms Cardiovascular: Reports: No Symptoms Gastrointestinal: Reports: No Symptoms Genitourinary: Reports: No Symptoms Musculoskeletal: Reports: No Symptoms Skin: Reports: No Symptoms Neurological: Reports: No Symptoms Psychiatric: Reports: No Symptoms - Patient Data Vitals - Most Recent: VSS, afebrile. See flowsheet. Weight - Most Recent: 228 lb Lab Results Last 24 Hours: Laboratory Results - last 24 hr 01/26/21 01/26/21 01/26/21 Range/Units 22:10 22:10 22:55 WBC 10.67 (4.0-11.0) K/uL RBC 4.25 L (4.30-5.90) M/uL Hgb 12.4 (12.0-16.0) g/dL Hct 36.5 (36.0-46.0) % MCV 85.9 (80.0-98.0) fL MCH 29.2 (27.0-32.0) pg MCHC 34.0 (31.0-37.0) g/dL RDW Std Deviation 43.0 (28.0-62.0) fl RDW Coeff of Howie 14 (11.0-15.0) % Plt Count 293 (150-400) K/uL MPV 12.70 H (7.40-12.00) fL Nucleated RBC % 0.0 /100WBC Nucleated RBCs # 0 K/uL SARS-CoV-2 RNA (MARY) NEGATIVE (NEGATIVE) Blood Type O POSITIVE Antibody Screen NEGATIVE Med Orders - Current: Current Medications Butorphanol Tartrate (Butorphanol 1 Mg/Ml Sdv) 1 mg IVPUSH Q1H PRN PRN Reason: Pain (severe 7-10) Carboprost Tromethamine (Carboprost Tromethamine 250 Mcg/1 Ml Amp) 250 mcg IM ASDIRECTED PRN PRN Reason: Post Hemorrhage Oxytocin/Sodium Chloride (Oxytocin 30 Unit/500 Ml-Ns) 30 unit in 500 mls @ 999 mls/hr IV TITRATE [facility] Tranexamic Acid 1,000 mg/ (Sodium Chloride) 110 mls @ 660 mls/hr IV ONETIME PRN PRN Reason: Bleeding Lactated Ringer's (Ringers, Lactated) 1,000 mls @ 150 mls/hr IV ASDIRECTED MARIIA Lidocaine HCl (Lidocaine 1% 50 Ml Mdv) 50 ml INJECT ONETIME PRN PRN Reason: Laceration repair Methylergonovine Maleate (Methylergonovine 0.2 Mg/1 Ml Amp) 0.2 mg IM ASDIRECTED PRN PRN Reason: Post Hemorrhage Misoprostol (Misoprostol 200 Mcg Tab) 200 mcg PO ONETIME PRN PRN Reason: Post Hemorrhage Nalbuphine HCl (Nalbuphine 10 Mg/1 Ml Vial) 10 mg IVPUSH Q1H PRN PRN Reason: Pain (severe 7-10) Sodium Chloride (Sodium Chloride 0.9% 10 Ml Syringe) 10 ml FLUSH ASDIRECTED PRN PRN Reason: Keep Vein Open Sodium Chloride (Sodium Chloride 0.9% 2.5 Ml Syringe) 2.5 ml FLUSH ASDIRECTED P RN PRN Reason: Keep Vein Open Sodium Chloride (Sodium Chloride 0.9% 10 Ml Sdv) 10 ml IV ASDIRECTED PRN PRN Reason: IV Use Sterile Water (Water For Irrigation,Sterile 1,000 Ml Container) 1,000 ml IRR ASDIRECTED PRN PRN Reason: delivery - Exam General: Alert, Oriented, Cooperative, No Acute Distress HEENT: Pupils Equal, Mucous Membr. Moist/[place] Neck: Supple Lungs: Clear to Auscultation, Normal Respiratory Effort Cardiovascular: Regular Rate, Regular Rhythm GI/Abdominal Exam: Normal Bowel Sounds, Soft, Non-Tender, No Organomegaly, No Distention (Female) Exam: Normal External Exam, Enlarged Uterus (Gravid uterus, firm @U), Vaginal Bleeding (No vaginal bleeding noted) Back Exam: Normal Inspection, Full Range of Motion Extremities: Normal Inspection, Normal Range of Motion, Non-Tender, No Pedal Edema, Normal Capillary Refill Skin: Warm, Dry, Intact Psy/Mental Status: Alert, Normal Affect, Normal Mood - Problem List & Annotations (1) (spontaneous vaginal delivery) SNOMED Code(s): 956098531 Code(s): O80 - ENCOUNTER FOR FULL-TERM UNCOMPLICATED DELIVERY Status: Acute Priority: High Current Visit: Yes (2) Lactating mother SNOMED Code(s): 602150742, 135799335 Code(s): Z39.1 - ENCOUNTER FOR CARE AND EXAMINATION OF LACTATING MOTHER Status: Acute Priority: High Current Visit: Yes - Problem List Review Problem List Initiated/Reviewed/Updated: Yes - My Orders Last 24 Hours: My Active Orders 01/26/21 Dinner Regular Diet [DIET] 01/26/21 22:10 RPR (SYPHILIS SERO) W/ RFLX [REF] Routine 01/26/21 22:15 Patient Status [ADT] Routine Heart Tones [RC] CONTINUOUS Non Stress Test [RC] PER UNIT ROUTINE May Shower [RC] ASDIRECTED Notify Provider [RC] PRN Up ad [place] [RC] ASDIRECTED Vaginal Exam [RC] PRN Vital Signs [RC] PER UNIT ROUTINE Butorphanol [Stadol] 1 mg IVPUSH Q1H PRN Carboprost Tromethamine [Hemabate DS] 250 mcg IM ASDIRECTED PRN Lactated Ringers [Ringers, Lactated] 1,000 ml IV ASDIRECTED Lidocaine 1% [Xylocaine 1%] 50 ml INJECT ONETIME PRN Methylergonovine [Methergine] 0.2 mg IM ASDIRECTED PRN Nalbuphine [Nubain] 10 mg IVPUSH Q1H PRN Oxytocin/0.9 % Sodium Chloride [Oxytocin 30 Unit/500 ML-NS] 30 unit in 500 ml IV TITRATE Sodium Chloride 0.9% [Normal Saline] 10 ml IV ASDIRECTED PRN Sodium Chloride 0.9% [Saline Flush] 10 ml FLUSH ASDIRECTED PRN Sodium Chloride 0.9% [Saline Flush] 2.5 ml FLUSH ASDIRECTED PRN Tranexamic Acid [Cyklokapron] 1,000 mg Sodium Chloride 0.9% [Normal Saline] 100 ml IV ONETIME Water For Irrigation,Sterile [Sterile Water for Irrigation] 1,000 ml IRR ASDIRECTED PRN miSOPROStoL [Cytotec] 200 mcg PO ONETIME PRN Scalp Electrode [WOMSER] Per Unit Routine Peripheral IV Insertion Adult [OM.PC] Routine Resuscitation Status Routine - Plan Plan:: Admit to inpatient unit s/p of viable term NBM admission for active labor with AROM augmentation. Regular diet. May ambulate with assistance. If patient has not voided within 6 hours s/p delivery, notify provider. May utilize brand sales consultant if needed. See new orders. Dr. Nunez notified and agreeable with POC.
[2021-01-27] MEDS ORDERED: Ibuprofen 400 MG Tab PO PRN (03:19)
[2021-01-27] MEDS ORDERED: oxyCODONE 5 MG Tab PO PRN (03:19)
[2021-01-27] MEDS ORDERED: Lanolin 100% Cream 7 GM Tube TOP PRN (03:19)
[2021-01-27] MEDS ORDERED: Witch Hazel Medicated Pads 40/Jar TOP PRN (03:19)
[2021-01-27] MEDS ORDERED: Bisacodyl 10 MG Supp RECTAL PRN (03:19)
[2021-01-27] MEDS ORDERED: Acetaminophen 500 MG Tab PO PRN ×2 (03:19)
[2021-01-27] MEDS ORDERED: Docusate Sodium 100 MG Cap PO PRN (03:19)
[2021-01-27] MEDS ORDERED: Sodium Chloride 0.9% 10 ML Syringe FLUSH PRN (03:19)
[2021-01-27] MEDS ORDERED: Sodium Chloride 0.9% 2.5 ML Syringe FLUSH PRN (03:19)
[2021-01-27] MEDS ORDERED: Benzocaine/Menthol 20%-0.5% Spray 78 GM Cannister TOP PRN (03:19)
[2021-01-27] MEDS: Ibuprofen 800 MG Tab PO PRN (16:17)
[2021-01-28] MEDS: Ibuprofen 800 MG Tab PO PRN (08:04)
--- NOTE | 2021-01-28 09:31 | PCM.DCSUM1 ---
Discharge Summary - Hospital Course Free Text/Narrative:: Shani is a 25 yo current PPD1 s/p uncomplicated at 39+4 weeks (TRISTEN(US) 01/30/2021) following presentation to L&D for strong persistent painful uterine contractions. O pos, RI, GBS neg. Patient has no complaints or concerns at this time. Patient is exclusively well, resting comfortably in bed with in arms latched to right breast. Patient reports she is eating, voiding, ambulating independently and without difficulty. Patient denies any problems or concerns at this time except mild-moderate intermittent uterine cramping relieved with Tylenol and Ibuprofen. Patient reports small to moderate vaginal bleeding with no clots. Patient verbalizes her readiness to be discharged home today. Diagnosis: Stroke: No - Discharge Data Discharge Date: 01/28/21 Discharge Disposition: Home, Self-Care 01 Condition: Good - Referral to Home Health Primary Care Physician: PCP None - Discharge Diagnosis/Problem(s) (1) (spontaneous vaginal delivery) SNOMED Code(s): 216884468 ICD Code: O80 - ENCOUNTER FOR FULL-TERM UNCOMPLICATED DELIVERY Status: Acute Priority: High Current Visit: Yes (2) Lactating mother SNOMED Code(s): 737861829, [id number] ICD Code: Z39.1 - ENCOUNTER FOR CARE AND EXAMINATION OF LACTATING MOTHER Status: Acute Priority: High Current Visit: Yes - Patient Instructions Diet: Usual Diet as Tolerated, Drink 8-10+ Glasses/Day Activity: As Tolerated, No Strenuous Activities, Rest and Relax Today Driving: May Drive Today Showering/Bathing: May Shower Showering/Bathing, Other: May sitz bathe for perineal comfort Notify Provider of: Fever, Increased Pain, Swelling and Redness, Drainage, Nausea and/or Vomiting - Discharge Plan *PRESCRIPTION DRUG MONITORING PROGRAM REVIEWED*: No *COPY OF PRESCRIPTION DRUG MONITORING REPORT IN PATIENT ANAHI: No Prescriptions/Med Rec: Ibuprofen [Motrin] 800 mg PO Q8H PRN #90 tablet PRN Reason: Pain (Mild 1-3) Home Medications: Home Meds Pnv22/Iron Cbn&Gluc/Fa/Dss/Dha [PNV OB + DHA] 1 tab PO DAILY 12/23/18 [History] Ibuprofen [Motrin] 800 mg PO Q8H PRN #90 tablet 01/28/21 [Rx] Oxygen Therapy Mode: Room Air - Discharge Summary/Plan Comment DC Time >30 min.: No Discharge Summary/Plan Comment: VSS, afebrile. Warning S/Ss, when to call for help discussed, no questions or concerns at this time. RTO in 6 weeks for visit with IUD insertion for management of dysmenorrhea and contraception. - General Info Date of Service: 01/28/21 Admission Dx/Problem (Free Text: Patient Status Order with Admit Dx/Problem 01/26/21 22:15 Patient Status [ADT] Routine Admission Diagnosis/Problem Admission Diagnosis/Problem Uterine contractions 01/26/21 22:24 Shani is a 25 yo at 39+3 weeks (TRISTEN(US) 01/30/2021) that presents today for strong persistent painful uterine contractions that started ~3 hours ago. Reports FM. Denies vaginal bleeding, LOF, or any other problems at this time. O pos, RI, GBS neg NKDA. Pertinent medical hx: obesity, SAB. Patient denies any other complaints or concerns at this time. SVE 4-5/80/-2, soft, anterior. 01/26/21 22:27 01/26/21 22:39 Functional Status: Reports: Pain Controlled, Tolerating Diet, Ambulating, Urinating - Review of Systems General: Reports: No Symptoms HEENT: Reports: No Symptoms Pulmonary: Reports: No Symptoms Cardiovascular: Reports: No Symptoms Gastrointestinal: Reports: No Symptoms Genitourinary: Reports: No Symptoms Musculoskeletal: Reports: No Symptoms Skin: Reports: No Symptoms Neurological: Reports: No Symptoms Psychiatric: Reports: No Symptoms - Patient Data Vitals - Most Recent: Last Vital Signs Temp 98.1 F 01/28/21 07:49 Pulse 77 01/28/21 07:49 Resp 18 01/28/21 07:49 BP 106/72 01/28/21 07:49 Pulse Ox 96 01/28/21 07:49 Weight - Most Recent: 228 lb Med Orders - Current: Current Medications Acetaminophen (Acetaminophen 500 Mg Tab) 500 mg PO Q4H PRN PRN Reason: Pain (mild 1-3) Acetaminophen (Acetaminophen 500 Mg Tab) 1,000 mg PO Q4H PRN PRN Reason: Pain (mild 1-3) Benzocaine/Menthol (Benzocaine/Menthol 20%-0.5% [place] 78 Gm Cannister) 78 gm TOP ASDIRECTED PRN PRN Reason: Perineal Comfort Measure Bisacodyl (Bisacodyl 10 Mg Supp) 10 mg RECTAL ONETIME PRN PRN Reason: Constipation Docusate Sodium (Docusate Sodium 100 Mg Cap) 100 mg PO Q12H PRN PRN Reason: Constipation Emollient Ointment (Lanolin 100% Cream 7 Gm Tube) 0 gm TOP ASDIRECTED PRN PRN Reason: Sore Nipples Ibuprofen (Ibuprofen 400 Mg Tab) 400 mg PO Q4H PRN PRN Reason: Pain (mild 1-3) Ibuprofen (Ibuprofen 800 Mg Tab) 800 mg PO Q6H PRN PRN Reason: Pain (mild 1-3) Last Admin: 01/28/21 08:04 Dose: 800 mg Documented by: Oxycodone HCl (Oxycodone 5 Mg Tab) 5 mg PO Q2H PRN PRN Reason: Pain (severe 7-10) Sodium Chloride (Sodium Chloride 0.9% 10 Ml Syringe) 10 ml FLUSH ASDIRECTED PRN PRN Reason: Keep Vein Open Sodium Chloride (Sodium Chloride 0.9% 2.5 Ml Syringe) 2.5 ml FLUSH ASDIRECTED PRN PRN Reason: Keep Vein Open Witch Tanesha (Witch Tanesha Medicated Pads 40/Jar) 1 pad TOP ASDIRECTED PRN PRN Reason: comfort care Discontinued Medications Butorphanol Tartrate (Butorphanol 1 Mg/Ml Sdv) 1 mg IVPUSH Q1H PRN PRN Reason: Pain (severe 7-10) Carboprost Tromethamine (Carboprost Tromethamine 250 Mcg/1 Ml Amp) 250 mcg IM ASDIRECTED PRN PRN Reason: Post Hemorrhage Oxytocin/Sodium Chloride (Oxytocin 30 Unit/500 Ml-Ns) 30 unit in 500 mls @ 999 mls/hr IV TITRATE [facility] Tranexamic Acid 1,000 mg/ (Sodium Chloride) 110 mls @ 660 mls/hr IV ONETIME PRN PRN Reason: Bleeding Lactated Ringer's (Ringers, Lactated) 1,000 mls @ 150 mls/hr IV ASDIRECTED MARII[facility] Lidocaine HCl (Lidocaine 1% 50 Ml Mdv) 50 ml INJECT ONETIME PRN PRN Reason: Laceration repair Methylergonovine Maleate (Methylergonovine 0.2 Mg/1 Ml Amp) 0.2 mg IM ASDIRECTED PRN PRN Reason: Post Hemorrhage Misoprostol (Misoprostol 200 Mcg Tab) 200 mcg PO ONETIME PRN PRN Reason: Post Hemorrhage Nalbuphine HCl (Nalbuphine 10 Mg/1 Ml Vial) 10 mg IVPUSH Q1H PRN PRN Reason: Pain (severe 7-10) Sodium Chloride (Sodium Chloride 0.9% 10 Ml Syringe) 10 ml FLUSH ASDIRECTED PRN PRN Reason: Keep Vein Open Sodium Chloride (Sodium Chloride 0.9% 2.5 Ml Syringe) 2.5 ml FLUSH ASDIRECTED PRN PRN Reason: Keep Vein Open Sodium Chloride (Sodium Chloride 0.9% 10 Ml Sdv) 10 ml IV ASDIRECTED PRN PRN Reason: IV Use Sterile Water (Water For Irrigation,Sterile 1,000 Ml Container) 1,000 ml IRR ASDIRECTED PRN PRN Reason: delivery - Exam General: Reports: Alert, Oriented, Cooperative, No Acute Distress HEENT: Reports: Pupils Equal, Mucous Membr. Moist/[place] Neck: Reports: Supple Lungs: Reports: Clear to Auscultation, Normal Respiratory Effort Cardiovascular: Reports: Regular Rate, Regular Rhythm GI/Abdominal Exam: Normal Bowel Sounds, Soft, Non-Tender, No Organomegaly, No Distention (Female) Exam: Normal External Exam, Enlarged Uterus ( uterus, firm U+1), Vaginal Bleeding (Small to moderate rubra lochia, no clots.) Rectal (Female) Exam: Deferred Back Exam: Reports: Normal Inspection, Full Range of Motion Extremities: Normal Inspection, Normal Range of Motion, Non-Tender, No Pedal Edema, Normal Capillary Refill Skin: Reports: Warm, Dry, Intact Psy/Mental Status: Reports: Alert, Normal Affect, Normal Mood
== END 2021-01-28 12:51 | disposition home or self-care (01) | DRG 560 ==
LOC: MW.OBCHECK 21:31 → MW.OB 21:31 → MW.OBCHECK 22:15 → OBSVTOIN 01-27 03:19 → MW.OB 01-27 14:37
PROVIDERS: ADMIT Obstetrics & Gynecology Obstetrics; ATTEND Obstetrics & Gynecology Obstetrics
PROC: 10E0XZZ Delivery of Products of Conception, External Approach (ICD-10-PCS; principal; 2021-01-27)
PROC: 3E0R3BZ Introduction of Anesthetic Agent into Spinal Canal, Percutaneous Approach (ICD-10-PCS; 2021-01-27)
PROC: 10907ZC Drainage of Amniotic Fluid, Therapeutic from Products of Conception, Via Natural or Artificial Opening (ICD-10-PCS; 2021-01-27)
DX: O99.214 Obesity complicating childbirth (principal); E66.9 Obesity, unspecified; Z3A.39 39 weeks gestation of pregnancy; Z37.0 Single live birth; Z20.822 Contact with and (suspected) exposure to COVID-19
CPT/HCPCS: 36415; 59025; 59409; 85027; 86592; 86850; 86900; 86901; A9270-GY; U0002